=== PATIENT | male | born 1965 ===

== ENCOUNTER 2023-11-28 09:15 | Inpatient (IN) | payer OTHER ==
[2023-11-28] MEDS ORDERED: CRESTOR10 MG PO (09:38)
[2023-11-28] MEDS ORDERED: OMEGA-31000 MG PO (09:39)
[2023-12-10] MEDS ORDERED: CEFAZOLIN SODIUM 1,000 MG VIAL ONE (07:19)
[2023-12-10] MEDS ORDERED: BUPIVACAINE HCL/PF 0.5% 30ML ML ONE (07:19)
[2023-12-10] MEDS ORDERED: ENOXAPARIN SODIUM 40 MG/0.4 ML SYRINGE SUBCUTANEO ONE ×2 (07:23→09:15)
[2023-12-10] MEDS ORDERED: CEFAZOLIN SODIUM 1,000 MG in 0.9 % SODIUM CHLORIDE 50 ML IV ONE (09:15)
[2023-12-10] MEDS ORDERED: BUPIVACAINE HCL/PF 0.5% 30ML ML IU ONE (09:15)
[2023-12-10] MEDS ORDERED: HEMOSTATIC MATRIX 1 KIT KIT TOP ONE ×2 (10:16→10:30)
[2023-12-10] MEDS ORDERED: SURGIFLO APPLICATOR 1 EACH APPL TOP ONE (10:17)
[2023-12-10] MEDS ORDERED: RINGERS SOLUTION,LACTATED 1,000 ML IV SCH (14:30)
[2023-12-10] MEDS ORDERED: ONDANSETRON HCL 2 MG/ML VIAL IV PRN (14:30)
[2023-12-10] MEDS ORDERED: OxyCODONE HCL/APAP UD (PERCOCET) PO PRN (14:30)
[2023-12-10] MEDS ORDERED: ONDANSETRON HCL 2 MG/ML VIAL ONE (15:11)
[2023-12-10] MEDS ORDERED: GABAPENTIN 300 MG CAPSULE PO SCH (17:00)
[2023-12-10] MEDS ORDERED: KETOROLAC TROMETHAMINE 30 MG VIAL IM SCH (18:00)
[2023-12-10] MEDS ORDERED: FAMOTIDINE/PF 20 MG/2 ML VIAL IV SCH (21:00)
[2023-12-10] MEDS ORDERED: CEFAZOLIN SODIUM 1,000 MG VIAL IV SCH (21:00)
[2023-12-11 07:15] LABS: HEMATOCRIT 26.7 % (39.0-48.0); HEMOGLOBIN 9.3 g/dL (13-16.00); MEAN CELL VOLUME 92.8 fL (80.0-100.00); MEAN CORPUSCULAR HEMOGLOBIN 32.3 pg (27.00-32.0); MEAN CORPUSCULAR HGB CONC 34.8 g/dl (32.0-36.0); PLATELET COUNT 256 K/uL (150-450); RED BLOOD COUNT 2.88 M/uL (4.00-6.00); RED CELL DISTRIBUTION WIDTH 14.1 % (11.5-14.5)
[2023-12-11 07:32] LABS: ALBUMIN 2.9 gm/dL (3.4-5.0); CREATININE SERUM 1.99 mg/dL (0.70-1.30); GFR 34.94; PHOSPHOROUS 4.5 mg/dL (2.5-4.9); POTASSIUM 4.35 mEq/L (3.5-5.1)
[2023-12-11] MEDS ORDERED: BISACODYL 5 MG TABLET.EC PO SCH (09:00)
[2023-12-11] MEDS ORDERED: OXYBUTYNIN CHLORIDE 5 MG TABLET PO SCH (09:00)
[2023-12-11] MEDS ORDERED: 0.9 % SODIUM CHLORIDE 1,000 ML IV SCH (12:15)
[2023-12-11 15:52] LABS: MEAN CELL VOLUME 92.7 fL (80.0-100.00); MEAN CORPUSCULAR HGB CONC 34.8 g/dl (32.0-36.0); PLATELET COUNT 227 K/uL (150-450); RED BLOOD COUNT 2.43 M/uL (4.00-6.00)
[2023-12-11 16:07] LABS: ALBUMIN 2.8 gm/dL (3.4-5.0); CALCIUM 7.9 mg/dL (8.5-10.1); CREATININE SERUM 1.83 mg/dL (0.70-1.30); GFR 38.48; PHOSPHOROUS 2.6 mg/dL (2.5-4.9); POTASSIUM 4.46 mEq/L (3.5-5.1)
[2023-12-11 16:18] LABS: HEMATOCRIT 22.5 % (39.0-48.0); HEMOGLOBIN 7.8 g/dL (13-16.00)
[2023-12-11] MEDS ORDERED: ENOXAPARIN SODIUM 40 MG/0.4 ML SYRINGE SUBCUTANEO SCH (17:00)
[2023-12-11] MEDS ORDERED: AMINOCAPROIC ACID 500 MG TABLET PO SCH (17:38)
[2023-12-12 09:43] LABS: HEMATOCRIT 31.9 % (39.0-48.0); HEMOGLOBIN 11.1 g/dL (13-16.00); MEAN CELL VOLUME 90.9 fL (80.0-100.00); MEAN CORPUSCULAR HEMOGLOBIN 31.6 pg (27.00-32.0); MEAN CORPUSCULAR HGB CONC 34.8 g/dl (32.0-36.0); PLATELET COUNT 210 K/uL (150-450); RED BLOOD COUNT 3.51 M/uL (4.00-6.00); RED CELL DISTRIBUTION WIDTH 14.7 % (11.5-14.5)
[2023-12-12 10:11] LABS: CALCIUM 8.8 mg/dL (8.5-10.1); CREATININE SERUM 1.81 mg/dL (0.70-1.30); GFR 38.98; POTASSIUM 4.26 mEq/L (3.5-5.1)
[2023-12-12] MEDS ORDERED: FUROsemide 20 MG/2 ML VIAL ONE (14:28)
[2023-12-12] MEDS ORDERED: FUROsemide 20 MG/2 ML VIAL IV STA (14:51)
[2023-12-12] MEDS ORDERED: AMINOCAPROIC ACID 20 MG/ML ML IV SCH (18:30)
[2023-12-13] MEDS ORDERED: BISACODYL 5 MG TABLET.EC PO SCH (09:00)
[2023-12-13 09:08] LABS: ALBUMIN 2.7 gm/dL (3.4-5.0); CALCIUM 8.3 mg/dL (8.5-10.1); CREATININE SERUM 1.81 mg/dL (0.70-1.30); GFR 38.98; POTASSIUM 4.49 mEq/L (3.5-5.1)
[2023-12-13 09:15] LABS: PHOSPHOROUS 1.7 mg/dL (2.5-4.9)
[2023-12-13 09:21] LABS: HEMATOCRIT 28.2 % (39.0-48.0); HEMOGLOBIN 9.8 g/dL (13-16.00); MEAN CORPUSCULAR HEMOGLOBIN 31.7 pg (27.00-32.0); MEAN CORPUSCULAR HGB CONC 34.9 g/dl (32.0-36.0); PLATELET COUNT 219 K/uL (150-450); RED CELL DISTRIBUTION WIDTH 14.9 % (11.5-14.5)
[2023-12-13] MEDS ORDERED: POTASSIUM PHOS,M-BASIC-D-BASIC 3 MM/ML VIAL IV NR (10:30)
[2023-12-13] MEDS ORDERED: SOD FERRIC GLUC COMPLX/SUCROSE 62.5 MG in 0.9 % SODIUM CHLORIDE 50 ML IV SCH (11:41)
[2023-12-13] MEDS ORDERED: Cyanocobalamin/Mecobalamin 1 TAB.SL SL SCH (11:42)
[2023-12-14 07:28] LABS: CALCIUM 8.3 mg/dL (8.5-10.1); CREATININE SERUM 1.65 mg/dL (0.70-1.30); GFR 43.37; MAGNESIUM 2.1 mg/dL (1.8-2.4); PHOSPHOROUS 2.1 mg/dL (2.5-4.9); POTASSIUM 4.22 mEq/L (3.5-5.1)
[2023-12-14 07:31] LABS: HEMATOCRIT 28.1 % (39.0-48.0); HEMOGLOBIN 9.9 g/dL (13-16.00); MEAN CELL VOLUME 92.4 fL (80.0-100.00); MEAN CORPUSCULAR HEMOGLOBIN 32.4 pg (27.00-32.0); MEAN CORPUSCULAR HGB CONC 35.1 g/dl (32.0-36.0); PLATELET COUNT 264 K/uL (150-450); RED BLOOD COUNT 3.04 M/uL (4.00-6.00); RED CELL DISTRIBUTION WIDTH 14.3 % (11.5-14.5)
[2023-12-14] MEDS ORDERED: POTASSIUM PHOS,M-BASIC-D-BASIC 3 MM/ML VIAL IV NR (08:45)
== END 2023-12-14 15:09 | disposition home or self-care (01) | DRG 707 ==
LOC: O/R 12-10 07:13 → SURH 12-10 09:15
PROVIDERS: Internal Medicine Geriatric Medicine; ADMIT Urology; ATTEND Urology
PROC: 07BC4ZZ Excision of Pelvis Lymphatic, Percutaneous Endoscopic Approach (ICD-10-PCS; 2023-12-10)
PROC: 8E0W4CZ Robotic Assisted Procedure of Trunk Region, Percutaneous Endoscopic Approach (ICD-10-PCS; 2023-12-10)
PROC: 0VT04ZZ Resection of Prostate, Percutaneous Endoscopic Approach (ICD-10-PCS; principal; 2023-12-10 12:30)
PROC: 30233N1 Transfusion of Nonautologous Red Blood Cells into Peripheral Vein, Percutaneous Approach (ICD-10-PCS; 2023-12-11)
DX: C61 Malignant neoplasm of prostate (principal); D62 Acute posthemorrhagic anemia
CPT/HCPCS: 38572; 55866; S2900